=== PATIENT | female | born 1955 | race Caucasian/White ===

== ENCOUNTER 2018-04-15 19:49 | Emergency (ER) | payer MEDICARE ==
[~2018-04-15] VITALS: Ht 167.6 cm; Wt 87.2 kg
[2018-04-15 20:51] LABS: BASOPHILS # (AUTO) 0.08 x10^3/uL (0-0.1); BASOPHILS % (AUTO) 1 % (0-1); EOSINOPHILS # (AUTO) 0.14 x10^3/uL (0-0.4); EOSINOPHILS % (AUTO) 2 % (1-7); LYMPHOCYTES # (AUTO) 2.49 x10^3/uL (1-3.4); LYMPHOCYTES % (AUTO) 31 % (22-44); MD NO; MEAN CORPUSCULAR HEMOGLOBIN 31.5 pg (27.0-34.8); MEAN CORPUSCULAR HGB CONC 33.1 g/dL (32.4-35.8); MEAN PLATELET VOLUME 8.7 fL (7.4-10.4); MONOCYTES # (AUTO) 0.63 x10^3/uL (0.2-0.8); MONOCYTES % (AUTO) 8 % (2-9); NEUTROPHILS # (AUTO) 4.81 x10^3/uL (1.8-6.8); NEUTROPHILS % (AUTO) 59 % (42-75); PLATELET COUNT 303 x10^3/uL (130-400); RED BLOOD COUNT 4.81 x10^6/uL (3.82-5.3); RED CELL DISTRIBUTION WIDTH 13.9 % (9.6-15.2)
[2018-04-15 20:59] LABS: ALANINE AMINOTRANSFERASE 19 U/L (12-78); ALBUMIN 3.4 g/dL (3.4-5.0); ANION GAP 6 mmol/L (5-15); CALCIUM 9.3 mg/dL (8.5-10.1); CHLORIDE 111 mmol/L (98-107); CREATININE 1.09 mg/dL (0.55-1.02); SALICYLATE LEVEL 2.9 mg/dL (2.8-20.0)
[2018-04-15 21:01] LABS: ALKALINE PHOSPHATASE 78 U/L (45-117); BILIRUBIN,TOTAL 0.2 mg/dL (0.2-1.0); TOTAL PROTEIN 6.7 g/dL (6.4-8.2)
[2018-04-15 21:02] LABS: ACETAMINOPHEN < 2 mcg/mL (10-30)
[2018-04-15 21:25] LABS: MICROSCOPIC INDICATED
[2018-04-15 21:26] LABS: CULTURE INDICATED? NO
[2018-04-15 21:30] LABS: AMPHETAMINE SCREEN, URINE Negative (Negative); BARBITURATE SCREEN, URINE Negative (Negative); BENZODIAZEPINE SCREEN, URINE Negative (Negative); CANNABINOID SCREEN, URINE Negative (Negative); COCAINE SCREEN, URINE Negative (Negative); METHADONE SCREEN, URINE Negative (Negative); OPIATE SCREEN, URINE Negative (Negative)
[2018-04-15 23:23] VITALS: BP 98/62
[2018-04-15] MEDS ORDERED: DULO30CA2 PO (23:26)
[2018-04-15] MEDS ORDERED: TIOT18CA INH (23:27)
[2018-04-15] MEDS ORDERED: CELE200C PO (23:27)
[2018-04-15] MEDS ORDERED: ALBU18HF INH (23:29)
[2018-04-15] MEDS ORDERED: ATOR20TA9 PO (23:30)
[2018-04-15] MEDS ORDERED: TRAZ100T15 PO (23:30)
[2018-04-15] MEDS ORDERED: MELO15TA6 PO (23:31)
== END 2018-04-16 02:48 | disposition home or self-care (01) ==
LOC: ED 22:53
DX: R45.851 Suicidal ideations (principal); J44.9 Chronic obstructive pulmonary disease, unspecified; Z79.899 Other long term (current) drug therapy
CPT/HCPCS: 36415; 80053; 80307; 80329; 81001; 85025; 99284; G0480

== ENCOUNTER 2018-05-19 10:42 | Emergency (ER) | payer MEDICARE ==
[~2018-05-19] VITALS: Ht 167.6 cm; Wt 87.0 kg
[~2018-05-19 10:42] MED LIST: ALBU18HF INH; ATOR20TA9 PO; CELE200C PO; DULO30CA2 PO; MELO15TA6 PO; TIOT18CA INH; TRAZ100T15 PO
[2018-05-19 11:44] LABS: BASOPHILS # (AUTO) 0.12 x10^3/uL (0-0.1); BASOPHILS % (AUTO) 1 % (0-1); EOSINOPHILS # (AUTO) 0.07 x10^3/uL (0-0.4); EOSINOPHILS % (AUTO) 1 % (1-7); LYMPHOCYTES # (AUTO) 1.95 x10^3/uL (1-3.4); LYMPHOCYTES % (AUTO) 24 % (22-44); MD NO; MEAN CORPUSCULAR HEMOGLOBIN 32.5 pg (27.0-34.8); MEAN CORPUSCULAR HGB CONC 34.2 g/dL (32.4-35.8); MEAN CORPUSCULAR VOLUME 95.1 fL (80-100); MONOCYTES # (AUTO) 0.55 x10^3/uL (0.2-0.8); MONOCYTES % (AUTO) 7 % (2-9); NEUTROPHILS # (AUTO) 5.61 x10^3/uL (1.8-6.8); NEUTROPHILS % (AUTO) 68 % (42-75); PLATELET COUNT 258 x10^3/uL (130-400); RED CELL DISTRIBUTION WIDTH 13.4 % (9.6-15.2)
[2018-05-19 11:54] LABS: ALANINE AMINOTRANSFERASE 21 U/L (12-78); ALBUMIN 3.5 g/dL (3.4-5.0); ANION GAP 11 mmol/L (5-15); CALCIUM 8.8 mg/dL (8.5-10.1); CHLORIDE 108 mmol/L (98-107); CREATININE 0.82 mg/dL (0.55-1.02)
[2018-05-19 11:58] LABS: ALKALINE PHOSPHATASE 73 U/L (45-117); BILIRUBIN,TOTAL 0.5 mg/dL (0.2-1.0); TOTAL PROTEIN 6.6 g/dL (6.4-8.2); TROPONIN I < 0.015 ng/mL (0.000-0.045)
[2018-05-19 12:07] LABS: INTERNATIONAL NORMALIZED RATIO 0.97 (0.93-1.1); PROTHROMBIN TIME 10.1 Seconds (9.6-11.5)
[2018-05-19 14:11] LABS: TROPONIN I < 0.015 ng/mL (0.000-0.045)
[2018-05-19 14:48] VITALS: BP 115/80
== END 2018-05-19 14:50 | disposition home or self-care (01) ==
LOC: ED 13:43
DX: R07.89 Other chest pain (principal); J44.9 Chronic obstructive pulmonary disease, unspecified; F17.200 Nicotine dependence, unspecified, uncomplicated
CPT/HCPCS: 36415; 71045; 80053; 84484; 85025; 85610; 85730; 93005; 99285

== ENCOUNTER 2018-05-27 12:33 | Inpatient (IN) | payer MEDICARE ==
[~2018-05-27] VITALS: Ht 165.1 cm; Wt 90.1 kg
[~2018-05-27 12:33] MED LIST changes: +TRAZ-137 PO; -TRAZ100T15 PO
[2018-05-27] MEDS ORDERED: ALBUTEROL SULFATE 2.5 MG/3 ML ONE (12:51)
[2018-05-27] MEDS ORDERED: MAGNESIUM SULFATE/D5W 100 ML IVPB ONE (13:00)
[2018-05-27] MEDS ORDERED: SODIUM CHLORIDE FLUSH 10ML SYR IVF ONE (13:00)
[2018-05-27] MEDS ORDERED: methylPREDNISolone SOD SUCC 125 MG/2 ML IVP ONE (13:00)
[2018-05-27] MEDS ORDERED: PLEASE ENTER HEIGHT AND WEIGHT MC SCH (13:00)
[2018-05-27] MEDS ORDERED: ALBUTEROL 0.5%, 20ML NPPB SCH (13:00)
[2018-05-27] MEDS ORDERED: MAGNESIUM SULFATE PMX 1GM/100ML IV ONE (13:00)
[2018-05-27 13:06] LABS: ALANINE AMINOTRANSFERASE 23 U/L (12-78); ALBUMIN 3.8 g/dL (3.4-5.0); ANION GAP 12 mmol/L (5-15); CALCIUM 9.2 mg/dL (8.5-10.1); CHLORIDE 108 mmol/L (98-107); CREATININE 0.97 mg/dL (0.55-1.02)
[2018-05-27 13:07] LABS: BASOPHILS # (AUTO) 0.14 x10^3/uL (0-0.1); BASOPHILS % (AUTO) 2 % (0-1); EOSINOPHILS % (AUTO) 1 % (1-7); LYMPHOCYTES # (AUTO) 2.32 x10^3/uL (1-3.4); LYMPHOCYTES % (AUTO) 27 % (22-44); MD NO; MEAN CORPUSCULAR HEMOGLOBIN 32.3 pg (27.0-34.8); MEAN CORPUSCULAR HGB CONC 34.3 g/dL (32.4-35.8); MEAN CORPUSCULAR VOLUME 94.2 fL (80-100); MEAN PLATELET VOLUME 8.8 fL (7.4-10.4); MONOCYTES # (AUTO) 0.52 x10^3/uL (0.2-0.8); MONOCYTES % (AUTO) 6 % (2-9); NEUTROPHILS # (AUTO) 5.47 x10^3/uL (1.8-6.8); NEUTROPHILS % (AUTO) 64 % (42-75); PLATELET COUNT 344 x10^3/uL (130-400); RED BLOOD COUNT 5.17 x10^6/uL (3.82-5.3); RED CELL DISTRIBUTION WIDTH 13.5 % (9.6-15.2)
[2018-05-27 13:10] LABS: ALKALINE PHOSPHATASE 82 U/L (45-117); BILIRUBIN,TOTAL 0.5 mg/dL (0.2-1.0); TOTAL PROTEIN 7.2 g/dL (6.4-8.2); TROPONIN I < 0.015 ng/mL (0.000-0.045)
[2018-05-27] MEDS ORDERED: methylPREDNISolone SOD SUCC 125 MG/2 ML ONE (13:30)
[2018-05-27] MEDS ORDERED: SODIUM CHLORIDE FLUSH 10ML SYR IVF PRN (15:00)
[2018-05-27] MEDS ORDERED: BISACODYL 10 MG SUPP PR PRN (16:00)
[2018-05-27] MEDS ORDERED: ENALAPRILAT 1.25 MG/ML, 2ML IVPush PRN (16:00)
[2018-05-27] MEDS ORDERED: ONDANSETRON ODT 4 MG PO PRN (16:00)
[2018-05-27] MEDS ORDERED: DOCUSATE 100 MG CAPSULE PO PRN (16:00)
[2018-05-27] MEDS ORDERED: ONDANSETRON 2MG/ML, 2ML IVPush PRN (16:00)
[2018-05-27] MEDS: SODIUM CHLORIDE 0.9% 1,000 ML IV SCH (16:48)
[2018-05-27] MEDS ORDERED: ALBUTEROL SULFATE 2.5 MG/3 ML NPPB PRN ×2 (17:00→17:30)
[2018-05-27] MEDS: NICOTINE 14MG/24 HR PATCH.TD24 TD SCH (18:30)
[2018-05-27] MEDS: ENOXAPARIN 40 MG/0.4 ML SQ SCH (18:30)
[2018-05-27 19:18] VITALS: BP 98/62
[2018-05-27] MEDS: ALBUTEROL SULFATE 2.5 MG/3 ML NPPB SCH (19:41)
[2018-05-27] MEDS: methylPREDNISolone SOD SUCC 125 MG/2 ML IVPush SCH (19:45)
[2018-05-27] MEDS: TRAZODONE 100MG TABLET PO SCH (21:08)
[2018-05-27] MEDS: ATORVASTATIN 20 MG TABLET PO SCH (21:08)
[2018-05-28] MEDS: methylPREDNISolone SOD SUCC 125 MG/2 ML IVPush SCH ×4 (01:13→20:30)
[2018-05-28 01:20] VITALS: BP 110/64
[2018-05-28 02:06] VITALS: BP 98/62
[2018-05-28] MEDS: SODIUM CHLORIDE 0.9% 1,000 ML IV SCH ×2 (04:49→20:33)
[2018-05-28] MEDS: ALBUTEROL SULFATE 2.5 MG/3 ML NPPB SCH (05:22)
[2018-05-28] MEDS ORDERED: GUAIFENESIN 100 MG/5 ML, 10ML UDC ONE (05:35)
[2018-05-28 05:43] LABS: BASOPHILS % (AUTO) 0 % (0-1); EOSINOPHILS % (AUTO) 0 % (1-7); LYMPHOCYTES # (AUTO) 0.82 x10^3/uL (1-3.4); LYMPHOCYTES % (AUTO) 11 % (22-44); MD NO; MEAN CORPUSCULAR HEMOGLOBIN 31.3 pg (27.0-34.8); MEAN PLATELET VOLUME 9.1 fL (7.4-10.4); MONOCYTES # (AUTO) 0.07 x10^3/uL (0.2-0.8); MONOCYTES % (AUTO) 1 % (2-9); NEUTROPHILS # (AUTO) 6.64 x10^3/uL (1.8-6.8); NEUTROPHILS % (AUTO) 88 % (42-75); PLATELET COUNT 333 x10^3/uL (130-400); RED BLOOD COUNT 4.72 x10^6/uL (3.82-5.3); RED CELL DISTRIBUTION WIDTH 13.8 % (9.6-15.2)
[2018-05-28] MEDS: GUAIFENESIN/COD200MG-20MG/10ML LIQUID PO PRN (05:49)
[2018-05-28 05:53] LABS: CHLORIDE 110 mmol/L (98-107)
[2018-05-28 06:08] LABS: ANION GAP 7 mmol/L (5-15); CALCIUM 9.1 mg/dL (8.5-10.1); CREATININE 0.71 mg/dL (0.55-1.02); THYROID STIMULATING HORMONE 0.735 mIU/L (0.358-3.740)
[2018-05-28 07:53] VITALS: BP 103/64
[2018-05-28] MEDS: SENNA/DOCUSATE TABLET PO SCH (08:06)
[2018-05-28] MEDS: DULOXETINE 30 MG CAPSULE.DR PO SCH (08:06)
[2018-05-28] MEDS ORDERED: (Albuterol Sulfate (Ventolin Hfa) 2 PUFF) INH SCH (09:00)
[2018-05-28] MEDS: (Tiotropium Bromide** (Spiriva**) 18 MCG) INH SCH (09:00)
[2018-05-28] MEDS ORDERED: ALBUTEROL SULFATE 2.5 MG/3 ML NPPB PRN (11:00)
[2018-05-28 14:12] VITALS: BP 90/54
[2018-05-28] MEDS: ALBUTEROL/IPRATROPIUM 2.5MG/0.5MG, 3 ML HHN SCH ×2 (15:42→20:36)
[2018-05-28 16:19] LABS: CLOSTRIDIUM DIFFICILE ANTIGEN NEGATIVE; CLOSTRIDIUM DIFFICILE TOXIN NEGATIVE (Negative)
[2018-05-28] MEDS: NICOTINE 14MG/24 HR PATCH.TD24 TD SCH (17:35)
[2018-05-28] MEDS: ENOXAPARIN 40 MG/0.4 ML SQ SCH (17:36)
[2018-05-28 20:04] VITALS: BP 112/65
[2018-05-28] MEDS: TRAZODONE 100MG TABLET PO SCH (20:30)
[2018-05-28] MEDS: ATORVASTATIN 20 MG TABLET PO SCH (20:30)
[2018-05-29 00:09] VITALS: BP 111/68
[2018-05-29] MEDS: methylPREDNISolone SOD SUCC 125 MG/2 ML IVPush SCH ×4 (03:17→23:36)
[2018-05-29] MEDS: ALBUTEROL/IPRATROPIUM 2.5MG/0.5MG, 3 ML HHN SCH ×5 (03:30→20:36)
[2018-05-29 08:03] VITALS: BP 105/55
[2018-05-29] MEDS: SODIUM CHLORIDE 0.9% 1,000 ML IV SCH (08:55)
[2018-05-29] MEDS: SENNA/DOCUSATE TABLET PO SCH (08:56)
[2018-05-29] MEDS: DULOXETINE 30 MG CAPSULE.DR PO SCH (08:56)
[2018-05-29] MEDS: ACETAMINOPHEN 325 MG TABLET PO PRN (08:56)
[2018-05-29] MEDS: (Tiotropium Bromide** (Spiriva**) 18 MCG) INH SCH (08:56)
[2018-05-29 14:30] VITALS: BP 110/57
[2018-05-29] MEDS ORDERED: CEFTRIAXONE 1,000 MG IM SCH (14:30)
[2018-05-29] MEDS: AZITHROMYCIN 500 MG in SODIUM CHLORIDE 0.9% 250 ML IV SCH (15:15)
[2018-05-29] MEDS: BENZONATATE 100 MG CAPSULE PO SCH ×2 (16:56→20:58)
[2018-05-29] MEDS: NICOTINE 14MG/24 HR PATCH.TD24 TD SCH (16:56)
[2018-05-29] MEDS: CEFTRIAXONE 1,000 MG in SODIUM CHLORIDE 0.9% 50 ML IV SCH (16:56)
[2018-05-29] MEDS: ENOXAPARIN 40 MG/0.4 ML SQ SCH (16:57)
[2018-05-29 19:49] VITALS: BP 124/74
[2018-05-29] MEDS: TRAZODONE 100MG TABLET PO SCH (20:58)
[2018-05-29] MEDS: ATORVASTATIN 20 MG TABLET PO SCH (20:58)
[2018-05-30 00:11] VITALS: BP 120/68
[2018-05-30] MEDS: methylPREDNISolone SOD SUCC 125 MG/2 ML IVPush SCH ×4 (06:15→23:20)
[2018-05-30] MEDS: ALBUTEROL/IPRATROPIUM 2.5MG/0.5MG, 3 ML HHN SCH ×4 (06:44→20:30)
[2018-05-30 07:03] VITALS: BP 116/77
[2018-05-30] MEDS: BENZONATATE 100 MG CAPSULE PO SCH ×3 (08:28→20:58)
[2018-05-30] MEDS: SENNA/DOCUSATE TABLET PO SCH (08:29)
[2018-05-30] MEDS: DULOXETINE 30 MG CAPSULE.DR PO SCH (08:31)
[2018-05-30] MEDS: (Tiotropium Bromide** (Spiriva**) 18 MCG) INH SCH (08:31)
[2018-05-30 14:59] VITALS: BP 92/54
[2018-05-30] MEDS: AZITHROMYCIN 500 MG in SODIUM CHLORIDE 0.9% 250 ML IV SCH (15:32)
[2018-05-30] MEDS: NICOTINE 14MG/24 HR PATCH.TD24 TD SCH (16:45)
[2018-05-30] MEDS: ENOXAPARIN 40 MG/0.4 ML SQ SCH (16:45)
[2018-05-30] MEDS: CEFTRIAXONE 1,000 MG in SODIUM CHLORIDE 0.9% 50 ML IV SCH (17:13)
[2018-05-30 19:33] VITALS: BP 136/79
[2018-05-30] MEDS: ATORVASTATIN 20 MG TABLET PO SCH (20:58)
[2018-05-30] MEDS: TRAZODONE 100MG TABLET PO SCH (20:58)
[2018-05-31 01:25] VITALS: BP 135/74
[2018-05-31] MEDS: methylPREDNISolone SOD SUCC 125 MG/2 ML IVPush SCH ×4 (05:29→22:46)
[2018-05-31 06:55] VITALS: BP 145/72
[2018-05-31] MEDS: ALBUTEROL/IPRATROPIUM 2.5MG/0.5MG, 3 ML HHN SCH ×4 (07:00→19:51)
[2018-05-31] MEDS: BENZONATATE 100 MG CAPSULE PO SCH ×3 (08:46→20:56)
[2018-05-31] MEDS: SENNA/DOCUSATE TABLET PO SCH (08:46)
[2018-05-31] MEDS: DULOXETINE 30 MG CAPSULE.DR PO SCH (08:46)
[2018-05-31] MEDS: (Tiotropium Bromide** (Spiriva**) 18 MCG) INH SCH (09:00)
[2018-05-31] MEDS: ACETAMINOPHEN 325 MG TABLET PO PRN (11:39)
[2018-05-31] MEDS: GUAIFENESIN/COD200MG-20MG/10ML LIQUID PO PRN (12:20)
[2018-05-31] MEDS: NICOTINE 14MG/24 HR PATCH.TD24 TD SCH (15:43)
[2018-05-31] MEDS: ENOXAPARIN 40 MG/0.4 ML SQ SCH (15:43)
[2018-05-31 15:47] VITALS: BP 124/70
[2018-05-31 18:49] VITALS: BP 118/70
[2018-05-31] MEDS: DOXYCYCLINE 100MG TABLET PO SCH (20:56)
[2018-05-31] MEDS: TRAZODONE 100MG TABLET PO SCH (20:56)
[2018-05-31] MEDS: ATORVASTATIN 20 MG TABLET PO SCH (20:56)
[2018-06-01 01:15] VITALS: BP 149/87
[2018-06-01] MEDS: methylPREDNISolone SOD SUCC 125 MG/2 ML IVPush SCH ×2 (05:54→11:00)
[2018-06-01] MEDS: ALBUTEROL/IPRATROPIUM 2.5MG/0.5MG, 3 ML HHN SCH ×2 (07:45→10:35)
[2018-06-01 07:53] VITALS: BP 151/80
[2018-06-01] MEDS: (Tiotropium Bromide** (Spiriva**) 18 MCG) INH SCH (08:06)
[2018-06-01] MEDS: DOXYCYCLINE 100MG TABLET PO SCH (08:11)
[2018-06-01] MEDS: SENNA/DOCUSATE TABLET PO SCH (08:11)
[2018-06-01] MEDS: BENZONATATE 100 MG CAPSULE PO SCH (08:11)
[2018-06-01] MEDS: DULOXETINE 30 MG CAPSULE.DR PO SCH (08:11)
[2018-06-01] MEDS ORDERED: ALBU18HF INH (08:52)
[2018-06-01] MEDS ORDERED: BENZ-17 PO (08:52)
[2018-06-01] MEDS ORDERED: METH4TAB2 PO (08:52)
[2018-06-01] MEDS ORDERED: TIOT18CA INH (08:52)
[2018-06-01] MEDS ORDERED: SENN1TAB7 PO (08:52)
[2018-06-01] MEDS ORDERED: FLUT1AER PO (08:52)
[2018-06-01] MEDS ORDERED: ALBU2.5V NPPB (08:52)
[2018-06-01] MEDS ORDERED: DOXY100T PO (08:52)
[2018-06-01] MEDS ORDERED: FLUTICASONE/VILANTEROL 100-25MCG/INH INH SCH (09:00)
== END 2018-06-01 13:12 | disposition home or self-care (01) | DRG 189 ==
LOC: ED 13:32 → EDIP 14:56 → 3NE 16:05 → DCLOUNGE 06-01 13:12
PROVIDERS: ADMIT Internal Medicine; ATTEND Internal Medicine
DX: J96.01 Acute respiratory failure with hypoxia (principal); J44.1 Chronic obstructive pulmonary disease with (acute) exacerbation; E87.2 Acidosis; R73.9 Hyperglycemia, unspecified; E78.5 Hyperlipidemia, unspecified; M19.90 Unspecified osteoarthritis, unspecified site; F41.9 Anxiety disorder, unspecified; F32.9 Major depressive disorder, single episode, unspecified; Z96.651 Presence of right artificial knee joint; F17.200 Nicotine dependence, unspecified, uncomplicated; Z81.8 Family history of other mental and behavioral disorders; Z82.49 Family history of ischemic heart disease and other diseases of the circulatory system
CPT/HCPCS: 36415; 71045; 80048; 80053; 83605; 83735; 84100; 84443; 84484; 85025; 87070; 87205; 87324; 93005; 94640; 99285; J0456; J0696; J1650; J7613; J7620; J2930; J7030; J7050

== ENCOUNTER 2018-07-03 14:33 | Emergency (ER) | payer MEDICARE ==
[~2018-07-03] VITALS: Ht 167.6 cm; Wt 80.1 kg
[~2018-07-03 14:33] MED LIST changes: +ALBU2.5V NPPB; +BENZ-17 PO; +DOXY100T PO; +FLUT1AER PO; +METH4TAB2 PO; +SENN1TAB8 PO
[2018-07-03 15:46] LABS: BASOPHILS # (AUTO) 0.11 x10^3/uL (0-0.1); BASOPHILS % (AUTO) 1 % (0-1); EOSINOPHILS # (AUTO) 0.07 x10^3/uL (0-0.4); EOSINOPHILS % (AUTO) 1 % (1-7); LYMPHOCYTES # (AUTO) 2.64 x10^3/uL (1-3.4); LYMPHOCYTES % (AUTO) 30 % (22-44); MD NO; MEAN CORPUSCULAR HEMOGLOBIN 31.9 pg (27.0-34.8); MEAN CORPUSCULAR HGB CONC 33.6 g/dL (32.4-35.8); MEAN CORPUSCULAR VOLUME 94.9 fL (80-100); MEAN PLATELET VOLUME 8.7 fL (7.4-10.4); MONOCYTES # (AUTO) 0.57 x10^3/uL (0.2-0.8); MONOCYTES % (AUTO) 6 % (2-9); NEUTROPHILS # (AUTO) 5.46 x10^3/uL (1.8-6.8); NEUTROPHILS % (AUTO) 62 % (42-75); PLATELET COUNT 278 x10^3/uL (130-400); RED BLOOD COUNT 4.91 x10^6/uL (3.82-5.3); RED CELL DISTRIBUTION WIDTH 13.8 % (9.6-15.2)
[2018-07-03 15:57] LABS: ALANINE AMINOTRANSFERASE 21 U/L (12-78); ALBUMIN 3.3 g/dL (3.4-5.0); ANION GAP 7 mmol/L (5-15); CALCIUM 8.7 mg/dL (8.5-10.1); CHLORIDE 110 mmol/L (98-107); CREATININE 0.92 mg/dL (0.55-1.02)
[2018-07-03 16:02] LABS: ALKALINE PHOSPHATASE 85 U/L (45-117); BILIRUBIN,TOTAL 0.3 mg/dL (0.2-1.0); TOTAL PROTEIN 6.3 g/dL (6.4-8.2); TROPONIN I < 0.015 ng/mL (0.000-0.045)
[2018-07-03 17:14] VITALS: BP 120/68
== END 2018-07-03 17:17 | disposition home or self-care (01) ==
LOC: ED 14:38
DX: J44.1 Chronic obstructive pulmonary disease with (acute) exacerbation (principal); F41.1 Generalized anxiety disorder; M19.90 Unspecified osteoarthritis, unspecified site; F17.200 Nicotine dependence, unspecified, uncomplicated
CPT/HCPCS: 36415; 71045; 80053; 83880; 84484; 85025; 93005; 99285; J7512

== ENCOUNTER 2018-07-30 06:44 | Emergency (ER) | payer MEDICARE ==
[~2018-07-30] VITALS: Ht 167.6 cm; Wt 87.5 kg
[2018-07-30] MEDS ORDERED: ASPIRIN 81 MG TABLET CHEW PO ONE (07:30)
[2018-07-30] MEDS ORDERED: ALBUTEROL/IPRATROPIUM 2.5MG/0.5MG, 3 ML NPPB ONE (07:30)
[2018-07-30] MEDS ORDERED: ALBUTEROL/IPRATROPIUM 2.5MG/0.5MG, 3 ML ONE (07:31)
[2018-07-30] MEDS ORDERED: ACETAMINOPHEN 325 MG TABLET ONE (07:37)
[2018-07-30 07:56] LABS: ALANINE AMINOTRANSFERASE 18 U/L (12-78); ALBUMIN 3.2 g/dL (3.4-5.0); ANION GAP 10 mmol/L (5-15); CHLORIDE 111 mmol/L (98-107); CREATININE 0.86 mg/dL (0.55-1.02)
[2018-07-30 08:00] LABS: ALKALINE PHOSPHATASE 78 U/L (45-117); BILIRUBIN,TOTAL 0.3 mg/dL (0.2-1.0); TOTAL PROTEIN 6.3 g/dL (6.4-8.2); TROPONIN I < 0.015 ng/mL (0.000-0.045)
[2018-07-30] MEDS ORDERED: ACETAMINOPHEN 325 MG TABLET PO ONE (08:00)
[2018-07-30 08:16] LABS: BASOPHILS # (AUTO) 0.12 x10^3/uL (0-0.1); BASOPHILS % (AUTO) 1 % (0-1); EOSINOPHILS # (AUTO) 0.26 x10^3/uL (0-0.4); EOSINOPHILS % (AUTO) 2 % (1-7); LYMPHOCYTES # (AUTO) 3.02 x10^3/uL (1-3.4); LYMPHOCYTES % (AUTO) 28 % (22-44); MD NO; MEAN CORPUSCULAR HEMOGLOBIN 32.6 pg (27.0-34.8); MEAN CORPUSCULAR HGB CONC 33.9 g/dL (32.4-35.8); MEAN CORPUSCULAR VOLUME 96.3 fL (80-100); MEAN PLATELET VOLUME 9.1 fL (7.4-10.4); MONOCYTES # (AUTO) 0.58 x10^3/uL (0.2-0.8); MONOCYTES % (AUTO) 5 % (2-9); NEUTROPHILS % (AUTO) 64 % (42-75); PLATELET COUNT 286 x10^3/uL (130-400); RED BLOOD COUNT 4.53 x10^6/uL (3.82-5.3); RED CELL DISTRIBUTION WIDTH 13.6 % (9.6-15.2)
[2018-07-30 09:16] VITALS: BP 123/59
== END 2018-07-30 09:18 | disposition home or self-care (01) ==
LOC: ED 07:27
DX: J44.1 Chronic obstructive pulmonary disease with (acute) exacerbation (principal); J06.9 Acute upper respiratory infection, unspecified; J44.9 Chronic obstructive pulmonary disease, unspecified; M19.90 Unspecified osteoarthritis, unspecified site; F32.9 Major depressive disorder, single episode, unspecified; E78.5 Hyperlipidemia, unspecified; F17.200 Nicotine dependence, unspecified, uncomplicated
CPT/HCPCS: 36415; 71045; 80053; 84484; 85025; 93005; 94640; 99285; J7512; J7620

== ENCOUNTER → 2018-08-11 | Outpatient (CLI) | payer MEDICARE | END | disposition home or self-care (01) | LOC: CFH 08:36 | PROVIDERS: ATTEND Physician Assistant | DX: Z12.2 Encounter for screening for malignant neoplasm of respiratory organs (principal); J44.9 Chronic obstructive pulmonary disease, unspecified; F17.210 Nicotine dependence, cigarettes, uncomplicated | CPT/HCPCS: G0297 ==

== ENCOUNTER 2018-09-17 11:30 | Emergency (ER) | payer MEDICARE ==
[~2018-09-17] VITALS: Ht 167.6 cm; Wt 89.6 kg
[2018-09-17 11:53] VITALS: BP 117/66
[2018-09-17] MEDS ORDERED: KETOROLAC 30 MG/1 ML ONE (12:29)
[2018-09-17] MEDS ORDERED: KETOROLAC 30 MG/1 ML IM ONE (12:30)
== END 2018-09-17 13:29 | disposition home or self-care (01) ==
LOC: ED 13:15
DX: M25.561 Pain in right knee (principal); M25.562 Pain in left knee; M54.5 Low back pain; G89.29 Other chronic pain; M25.552 Pain in left hip; E78.5 Hyperlipidemia, unspecified; F32.9 Major depressive disorder, single episode, unspecified; F41.1 Generalized anxiety disorder; J44.9 Chronic obstructive pulmonary disease, unspecified; M19.90 Unspecified osteoarthritis, unspecified site; Z90.89 Acquired absence of other organs
CPT/HCPCS: 96372; 99283; J1885

== ENCOUNTER 2018-10-03 12:08 | Emergency (ER) | payer MEDICARE ==
[~2018-10-03] VITALS: Ht 167.6 cm; Wt 86.8 kg
[~2018-10-03 12:08] MED LIST changes: +ATOR20TA37 PO; -ATOR20TA9 PO
[2018-10-03] MEDS ORDERED: ALBUTEROL/IPRATROPIUM 2.5MG/0.5MG, 3 ML ONE (13:24)
[2018-10-03 13:29] LABS: BASOPHILS # (AUTO) 0.08 x10^3/uL (0-0.1); BASOPHILS % (AUTO) 1 % (0-1); EOSINOPHILS # (AUTO) 0.11 x10^3/uL (0-0.4); EOSINOPHILS % (AUTO) 1 % (1-7); LYMPHOCYTES # (AUTO) 3.72 x10^3/uL (1-3.4); LYMPHOCYTES % (AUTO) 37 % (22-44); MD NO; MEAN CORPUSCULAR HEMOGLOBIN 32.2 pg (27.0-34.8); MEAN CORPUSCULAR HGB CONC 33.2 g/dL (32.4-35.8); MEAN CORPUSCULAR VOLUME 97.1 fL (80-100); MEAN PLATELET VOLUME 8.8 fL (7.4-10.4); MONOCYTES # (AUTO) 0.44 x10^3/uL (0.2-0.8); MONOCYTES % (AUTO) 4 % (2-9); NEUTROPHILS # (AUTO) 5.62 x10^3/uL (1.8-6.8); NEUTROPHILS % (AUTO) 56 % (42-75); PLATELET COUNT 305 x10^3/uL (130-400); RED BLOOD COUNT 4.84 x10^6/uL (3.82-5.3); RED CELL DISTRIBUTION WIDTH 13.5 % (9.6-15.2)
[2018-10-03] MEDS ORDERED: ALBUTEROL/IPRATROPIUM 2.5MG/0.5MG, 3 ML NEB ONE (13:30)
[2018-10-03 13:40] LABS: ALBUMIN 3.4 g/dL (3.4-5.0); ANION GAP 8 mmol/L (5-15); CALCIUM 8.9 mg/dL (8.5-10.1); CHLORIDE 108 mmol/L (98-107); CREATININE 0.88 mg/dL (0.55-1.02)
[2018-10-03 13:43] LABS: TROPONIN I < 0.015 ng/mL (0.000-0.045)
[2018-10-03 14:51] VITALS: BP 117/57
== END 2018-10-03 15:37 | disposition home or self-care (01) ==
LOC: ED 13:28
DX: J44.1 Chronic obstructive pulmonary disease with (acute) exacerbation (principal); M19.90 Unspecified osteoarthritis, unspecified site; E78.5 Hyperlipidemia, unspecified; F41.1 Generalized anxiety disorder; F32.9 Major depressive disorder, single episode, unspecified; F17.200 Nicotine dependence, unspecified, uncomplicated
CPT/HCPCS: 36415; 71045; 80048; 82040; 84484; 85025; 93005; 94640; 99284; J7512

== ENCOUNTER 2018-12-19 09:04 | Emergency (ER) | payer MEDICARE ==
[~2018-12-19] VITALS: Ht 167.6 cm; Wt 89.0 kg
[~2018-12-19 09:04] MED LIST changes: +SENN-177 PO; -SENN1TAB8 PO
--- NOTE | 2018-12-19 09:28 | NUR ---
Ambulatory w/ steady gait to rm 25 from [facility].
[2018-12-19] MEDS ORDERED: DIPHENHYDRAMINE 50 MG/ML, 1ML ONE (09:53)
[2018-12-19] MEDS ORDERED: KETOROLAC 30 MG/1 ML ONE (09:53)
[2018-12-19] MEDS ORDERED: KETOROLAC 30 MG/1 ML IM ONE (10:00)
[2018-12-19] MEDS ORDERED: NALBUPHINE 10 MG/ML, 1ML IM PRN (10:00)
[2018-12-19] MEDS ORDERED: DIPHENHYDRAMINE 50 MG/ML, 1ML IM ONE (10:00)
--- NOTE | 2018-12-19 10:04 | NUR ---
report form elayne feng. pt resting in room with lights dimmed. medicated per dec. no needs at this time. connected to monitor. vss. call light within reach. new orders received for head ct. awaiting imaging at this time.
--- NOTE | 2018-12-19 10:44 | NUR ---
all results back at this time. chart up for recheck.
[2018-12-19 11:07] VITALS: BP 112/48
--- NOTE | 2018-12-19 11:07 | NUR ---
pt resting in room with lights dimmed. vss. no needs at this time. awaiting dispo.
== END 2018-12-19 11:23 | disposition home or self-care (01) ==
LOC: ED 09:39
DX: R51 Headache (principal); E78.5 Hyperlipidemia, unspecified; J44.9 Chronic obstructive pulmonary disease, unspecified; F17.200 Nicotine dependence, unspecified, uncomplicated
CPT/HCPCS: 70450; 96372; 99284; J1200; J1885

== ENCOUNTER 2019-01-11 14:38 | Emergency (ER) | payer MEDICARE ==
[~2019-01-11] VITALS: Ht 167.6 cm; Wt 89.3 kg
[2019-01-11 15:15] LABS: BASOPHILS % (AUTO) 1 % (0-1); EOSINOPHILS # (AUTO) 0.12 x10^3/uL (0-0.4); EOSINOPHILS % (AUTO) 1 % (1-7); LYMPHOCYTES # (AUTO) 2.14 x10^3/uL (1-3.4); LYMPHOCYTES % (AUTO) 25 % (22-44); MD NO; MEAN CORPUSCULAR HEMOGLOBIN 32.5 pg (27.0-34.8); MEAN CORPUSCULAR HGB CONC 34.1 g/dL (32.4-35.8); MEAN CORPUSCULAR VOLUME 95.5 fL (80-100); MEAN PLATELET VOLUME 8.7 fL (7.4-10.4); MONOCYTES # (AUTO) 0.57 x10^3/uL (0.2-0.8); MONOCYTES % (AUTO) 7 % (2-9); NEUTROPHILS % (AUTO) 65 % (42-75); PLATELET COUNT 282 x10^3/uL (130-400); RED BLOOD COUNT 4.66 x10^6/uL (3.82-5.3); RED CELL DISTRIBUTION WIDTH 13.1 % (9.6-15.2)
[2019-01-11 15:23] LABS: ALBUMIN 3.6 g/dL (3.4-5.0); ANION GAP 3 mmol/L (5-15); CALCIUM 8.7 mg/dL (8.5-10.1); CHLORIDE 111 mmol/L (98-107); CREATININE 1.17 mg/dL (0.55-1.02); SALICYLATE LEVEL 1.8 mg/dL (2.8-20.0)
--- NOTE | 2019-01-11 15:23 | NUR ---
PT PRESENTS TO ED C/O SI, DENIES HI. PT STATES SHE HAS THOUGHTS OF CRASHING HER CAR A MEANS TO KIL HERSELF. PT HAS ACCESS TO CAR. PT DENIES PREVIOUS ATTEMTPS. PT TO ROOM, AMBULATORY WITH STEADY GAIT. ALL PT BELONGINGS REMOVED. ROOM SECURED. 2 BAGS OF PT BELONGINGS TO ED SECURED STORAGE. URINE SAMPLE OBTAINED AND SENT TO LAB. SITTER REQUESTED TO BEDSIDE. PT STATES SHE WANTS HELP WITH HER SI. PT AGREES TO VERBAL CONTRACT WITH THIS RN TO NOT ATTEMPT TO HURT HERSELF WHILE IN ED.
[2019-01-11 15:24] LABS: ACETAMINOPHEN < 2 mcg/mL (10-30)
[2019-01-11 15:45] LABS: AMPHETAMINE SCREEN, URINE Negative (Negative); BARBITURATE SCREEN, URINE Negative (Negative); BENZODIAZEPINE SCREEN, URINE Negative (Negative); CANNABINOID SCREEN, URINE Negative (Negative); COCAINE SCREEN, URINE Negative (Negative); METHADONE SCREEN, URINE Negative (Negative); OPIATE SCREEN, URINE Negative (Negative)
--- NOTE | 2019-01-11 16:14 | NUR ---
PT HOME MEDICATIONS TAKEN TO PHARMACY AND RECEIPT PLACED ON PT CHART, PT INFORMED. PT RESTING ON GURNEY. PROVIDED WITH WATER. SITTER IN PLACE WITH EYES ON PT. ROOM SETUP FOR TELEPSYCH CONSULT.
--- NOTE | 2019-01-11 16:36 | NUR ---
REPORT TO SOC OVER PHONE
--- NOTE | 2019-01-11 17:31 | NUR ---
PT RESTING ON GURNEY. RESP EVEN AND UNLABORED. NADN. SITTER IN PLACE WITH EYES ON PT. AWAITING REPORT FROM SOC.
--- NOTE | 2019-01-11 18:59 | NUR ---
SBAR REPORT TO KEVIN VUONG
--- NOTE | 2019-01-11 19:00 | NUR ---
PT PROVIDED WITH ED DIET SECURITY TRAY. SITTER IN PLACE WITH EYES ON.
--- NOTE | 2019-01-11 19:01 | NUR ---
ASSUMED CARE OF PT FROM KEVIN SADLER. PT CURRENTLY RESTING ON [employer]. NAD NOTED. SKIN PWD. RESP EVEN AND EQAUL. PT EATING MEAL TRAY. GARAGE DOORS DOWN IN ROOM. BELONGINGS IN LOCKED LOCKER. SITTER AT DOORSIDE.
[2019-01-11 19:24] VITALS: BP 108/54
--- NOTE | 2019-01-11 19:51 | NUR ---
ADMITTING MD BARRIENTOS AT BEDSIDE. PT CALM AND COOPERATIVE. PT VERBALIZES UNDERSTANDING OF POC. GARAGE DOORS DOWN IN ROOM. BELONGINGS IN LOCKED LOCKER. SITTER OUTSIDE OF ROOM.
--- NOTE | 2019-01-11 20:36 | NUR ---
PT CURRENTLY RESTING ON [employer]. NAD NOTED. SKIN PWD. RESP EVEN AND EQAUL. PT PROVIDED WITH DRINKS. GARAGE DOORS DOWN IN ROOM. BELONGINGS IN LOCKED LOCKER. SITTER AT DOORSIDE.
--- NOTE | 2019-01-11 21:05 | NUR ---
PT CURRENTLY RESTING ON [employer]. NAD NOTED. SKIN PWD. RESP EVEN AND EQAUL. PT DENIES PAIN/NEEDS AT THIS TIME. GARAGE DOORS DOWN IN ROOM. BELONGINGS IN LOCKED LOCKER. SITTER AT DOORSIDE.
--- NOTE | 2019-01-11 21:12 | NUR ---
TJ RN: PACKET FAXED TO [facility], [facility], [facility], [facility], [facility], AND [facility]
--- NOTE | 2019-01-11 21:13 | NUR ---
TJ RN: PACKET ALSO FAXED TO [facility]
--- NOTE | 2019-01-11 21:22 | NUR ---
REPORT FROM CAROLANN RN. PT RESTING. VSS. PT IN VIEW OF SITTER.
--- NOTE | 2019-01-11 21:24 | NUR ---
REPORT TO KEVIN FRIED WHO ASSUMED CARE OF PT.
--- NOTE | 2019-01-11 23:23 | NUR ---
[facility] TO TAKE PT. THEY WILL CALL BACK WITH AN ACCEPTING MD. PT SLEEPING. SITTER IN VIEW OF PT.
--- NOTE | 2019-01-12 | NUR ---
TP RN: NIA FROM [facility] AND STATES THEY WILL BE TAKING THIS PATIENT. DR. LAZCANO IS THE ACCEPTING PHYSCIAN. THEY REQUEST THAT WE WAIT UNTIL [phone] TO SEND PT.
--- NOTE | 2019-01-12 00:03 | NUR ---
Met with patient, prior authorization done with insurance, psychiatrist will admit to [facility].
--- NOTE | 2019-01-12 00:12 | NUR ---
Notified ER of acceptance to [facility]. Informed that [facility] had accepted patient.
[2019-01-12] MEDS ORDERED: ALBUTEROL SULFATE 2.5 MG/3 ML NPPB PRN (00:30)
[2019-01-12] MEDS ORDERED: TRAZODONE 100MG TABLET PO SCH (00:30)
--- NOTE | 2019-01-12 00:34 | NUR ---
PT SLEEPING. EVEN RISE AND FOLL OF CHEST OBSERVED. SITTER IN VIEW OF PT.
--- NOTE | 2019-01-12 01:04 | NUR ---
TP RN: BURKE KRAMER AT [facility], PT INSURANCE IS OUT OF NETWORK FOR THEM, SO THEY WILL NOT BE ACCEPTING THIS PATIENT.
--- NOTE | 2019-01-12 01:07 | NUR ---
TP RN: SPOKE TO [employer] ON [facility], KATHY. SHE STATES [facility] WILL BE ACCEPTING THIS PATIENT. THE NURSE WILL CALL SHORTLY FOR REPORT
--- NOTE | 2019-01-12 01:30 | NUR ---
Patient/Caregiver given discharge instructions and they have confirmed that they understand the instructions. Patient ambulatory with steady gait.
[2019-01-12] MEDS ORDERED: DULOXETINE 30 MG CAPSULE.DR PO SCH (09:00)
[2019-01-12] MEDS ORDERED: ATORVASTATIN 20 MG TABLET PO SCH (21:00)
== END 2019-01-12 01:46 | disposition home or self-care (01) ==
LOC: ED 15:40 → EDIP 19:58 → UNDOADMIN 19:58
DX: F33.2 Major depressive disorder, recurrent severe without psychotic features (principal); Z79.899 Other long term (current) drug therapy; F41.1 Generalized anxiety disorder; J44.9 Chronic obstructive pulmonary disease, unspecified
CPT/HCPCS: 36415; 80048; 80307; 80329; 82040; 85025; 99284; 99285; G0480

== ENCOUNTER 2019-01-12 00:57 | Inpatient (IN) | payer MEDICARE ==
[~2019-01-12] VITALS: Ht 167.6 cm; Wt 87.3 kg
[2019-01-12] MEDS ORDERED: POLYETHYLENE GLYCOL 17 GM PACKET PO PRN (01:30)
[2019-01-12] MEDS ORDERED: DOCUSATE 100 MG CAPSULE PO PRN (01:30)
[2019-01-12] MEDS ORDERED: ACETAMINOPHEN 325 MG TABLET PO PRN (01:30)
[2019-01-12] MEDS ORDERED: BISACODYL 10 MG SUPP PR PRN (01:30)
[2019-01-12] MEDS ORDERED: ONDANSETRON ODT 4 MG PO PRN (01:30)
[2019-01-12 01:56] LABS: MICROSCOPIC NOT IND
[2019-01-12 02:00] LABS: CULTURE INDICATED? NO
[2019-01-12] MEDS ORDERED: ALBUTEROL SULFATE 2.5 MG/3 ML NPPB PRN (02:00)
[2019-01-12 02:01] LABS: CHOL/HDL RATIO 2.1; LDL/HDL RATIO 0.8 (0.5-3.0)
[2019-01-12] MEDS: ATORVASTATIN 20 MG TABLET PO SCH ×2 (02:10→21:08)
[2019-01-12 02:56] LABS: FREE T4 (FREE THYROXINE) 0.84 ng/dL (0.76-1.46)
[2019-01-12 03:38] VITALS: BP 116/76
[2019-01-12 08:00] VITALS: BP 105/69
[2019-01-12] MEDS ORDERED: DULOXETINE 30 MG CAPSULE.DR PO SCH (09:00)
[2019-01-12] MEDS ORDERED: ALBUTEROL/IPRATROPIUM 2.5MG/0.5MG, 3 ML NPPB PRN (11:30)
[2019-01-12] MEDS: NICOTINE 7 MG/24 HR PATCH.TD24 TD SCH (12:50)
[2019-01-12 20:00] VITALS: BP 110/72
[2019-01-12] MEDS: TRAZODONE 100MG TABLET PO SCH (21:08)
[2019-01-13 05:05] LABS: ALANINE AMINOTRANSFERASE 27 U/L (12-78); ANION GAP 5 mmol/L (5-15); CALCIUM 8.2 mg/dL (8.5-10.1); CHLORIDE 112 mmol/L (98-107)
[2019-01-13 05:16] LABS: ALKALINE PHOSPHATASE 84 U/L (45-117); BILIRUBIN,TOTAL 0.5 mg/dL (0.2-1.0); CREATININE 0.77 mg/dL (0.55-1.02); TOTAL PROTEIN 5.7 g/dL (6.4-8.2)
[2019-01-13 07:34] VITALS: BP 103/70
[2019-01-13] MEDS: DULOXETINE 30 MG CAPSULE.DR PO SCH (08:34)
[2019-01-13] MEDS: NICOTINE 7 MG/24 HR PATCH.TD24 TD SCH (12:27)
[2019-01-13 20:13] VITALS: BP 117/84
[2019-01-13] MEDS: ATORVASTATIN 20 MG TABLET PO SCH (21:34)
[2019-01-13] MEDS: TRAZODONE 100MG TABLET PO SCH (21:34)
[2019-01-14 07:37] VITALS: BP 103/76
[2019-01-14] MEDS: DULOXETINE 30 MG CAPSULE.DR PO SCH (08:11)
[2019-01-14] MEDS: NICOTINE 7 MG/24 HR PATCH.TD24 TD SCH (12:38)
[2019-01-14 19:52] VITALS: BP 105/68
[2019-01-14] MEDS: TRAZODONE 100MG TABLET PO SCH (21:13)
[2019-01-14] MEDS: ATORVASTATIN 20 MG TABLET PO SCH (21:13)
[2019-01-15 07:15] VITALS: BP 91/59
[2019-01-15] MEDS: DULOXETINE 30 MG CAPSULE.DR PO SCH (09:18)
[2019-01-15] MEDS: NICOTINE 7 MG/24 HR PATCH.TD24 TD SCH (11:49)
[2019-01-15 19:53] VITALS: BP 102/65
[2019-01-15] MEDS: ATORVASTATIN 20 MG TABLET PO SCH (20:00)
[2019-01-15] MEDS: TRAZODONE 100MG TABLET PO SCH (20:00)
[2019-01-16 07:44] VITALS: BP 121/62
[2019-01-16] MEDS: DULOXETINE 30 MG CAPSULE.DR PO SCH (08:39)
[2019-01-16] MEDS: NICOTINE 7 MG/24 HR PATCH.TD24 TD SCH (12:13)
[2019-01-16 19:58] VITALS: BP 96/60
[2019-01-16] MEDS: ATORVASTATIN 20 MG TABLET PO SCH (20:16)
[2019-01-16] MEDS: TRAZODONE 100MG TABLET PO SCH (20:16)
[2019-01-17 07:14] VITALS: BP 104/70
[2019-01-17] MEDS: DULOXETINE 30 MG CAPSULE.DR PO SCH (08:41)
[2019-01-17] MEDS: NICOTINE 7 MG/24 HR PATCH.TD24 TD SCH (12:00)
[2019-01-17 19:59] VITALS: BP 107/71
[2019-01-17] MEDS: TRAZODONE 100MG TABLET PO SCH (20:25)
[2019-01-17] MEDS: ATORVASTATIN 20 MG TABLET PO SCH (20:25)
[2019-01-18 07:21] VITALS: BP 105/67
[2019-01-18] MEDS: DULOXETINE 30 MG CAPSULE.DR PO SCH (08:39)
[2019-01-18] MEDS ORDERED: DULO60CA7 PO (10:06)
== END 2019-01-18 10:45 | disposition home or self-care (01) | DRG 885 ==
LOC: 3E 01:41
PROVIDERS: ADMIT Psychiatry & Neurology Psychosomatic Medicine; ATTEND Psychiatry & Neurology Psychosomatic Medicine
DX: F33.2 Major depressive disorder, recurrent severe without psychotic features (principal); R45.851 Suicidal ideations; J44.9 Chronic obstructive pulmonary disease, unspecified; E78.5 Hyperlipidemia, unspecified; G89.29 Other chronic pain; M19.90 Unspecified osteoarthritis, unspecified site; Z23 Encounter for immunization; Z91.5 Personal history of self-harm; Z81.8 Family history of other mental and behavioral disorders; Z83.3 Family history of diabetes mellitus; Z80.42 Family history of malignant neoplasm of prostate
CPT/HCPCS: 36415; 71045; 80053; 80061; 81003; 82150; 82607; 83690; 83735; 84100; 84439; 84443; 86592; 90656; 93005; 99285

== ENCOUNTER 2019-12-28 12:51 | Emergency (ER) | payer SELFPAY ==
[~2019-12-28] VITALS: Ht 167.6 cm; Wt 90.4 kg
[~2019-12-28 12:51] MED LIST changes: +DULO60CA7 PO; -TRAZ-137 PO; +TRAZ-175 PO
[2019-12-28 12:56] VITALS: BP 123/64
--- NOTE | 2019-12-28 13:15 | NUR ---
PT HAS CO CHEST PRESSURE AND STRESS. PT HAS HAD NUMEROUS STRESSORS AND IS TEARFUL. PT STATES HER CP, SOB STARTED A FEW DAYS AGO. DENIES N/V/D.
[2019-12-28 13:55] LABS: BASOPHILS # (AUTO) 0.05 x10^3/uL (0-0.1); BASOPHILS % (AUTO) 1 % (0-1); EOSINOPHILS # (AUTO) 0.11 x10^3/uL (0-0.4); EOSINOPHILS % (AUTO) 2 % (1-7); LYMPHOCYTES # (AUTO) 2.42 x10^3/uL (1-3.4); LYMPHOCYTES % (AUTO) 36 % (22-44); MD NO; MEAN CORPUSCULAR HEMOGLOBIN 31.9 pg (27.0-34.8); MEAN CORPUSCULAR HGB CONC 33.1 g/dL (32.4-35.8); MEAN CORPUSCULAR VOLUME 96.5 fL (80-100); MEAN PLATELET VOLUME 9.1 fL (7.4-10.4); MONOCYTES # (AUTO) 0.39 x10^3/uL (0.2-0.8); MONOCYTES % (AUTO) 6 % (2-9); NEUTROPHILS # (AUTO) 3.76 x10^3/uL (1.8-6.8); NEUTROPHILS % (AUTO) 56 % (42-75); PLATELET COUNT 260 x10^3/uL (130-400); RED BLOOD COUNT 4.93 x10^6/uL (3.82-5.3); RED CELL DISTRIBUTION WIDTH 12.8 % (9.6-15.2)
[2019-12-28] MEDS ORDERED: ALBUTEROL/IPRATROPIUM 2.5MG/0.5MG, 3 ML NPPB ONE (14:00)
[2019-12-28 14:06] LABS: ALANINE AMINOTRANSFERASE 19 U/L (12-78); ALBUMIN 3.5 g/dL (3.4-5.0); ANION GAP 6 mmol/L (5-15); CALCIUM 8.8 mg/dL (8.5-10.1); CHLORIDE 111 mmol/L (98-107)
[2019-12-28] MEDS ORDERED: ALBUTEROL/IPRATROPIUM 2.5MG/0.5MG, 3 ML ONE (14:06)
[2019-12-28 14:13] LABS: ALKALINE PHOSPHATASE 86 U/L (45-117); BILIRUBIN,TOTAL 0.4 mg/dL (0.2-1.0); TOTAL PROTEIN 6.4 g/dL (6.4-8.2); TROPONIN I < 0.015 ng/mL (0.000-0.045)
--- NOTE | 2019-12-28 14:24 | NUR ---
Patient/Caregiver given discharge instructions and they have confirmed that they understand the instructions. Patient ambulatory with steady gait.
== END 2019-12-28 15:21 | disposition home or self-care (01) ==
LOC: ED 13:51
DX: J44.1 Chronic obstructive pulmonary disease with (acute) exacerbation (principal); R07.89 Other chest pain; M19.90 Unspecified osteoarthritis, unspecified site; E78.5 Hyperlipidemia, unspecified; F17.200 Nicotine dependence, unspecified, uncomplicated; Z90.89 Acquired absence of other organs
CPT/HCPCS: 36415; 80053; 83690; 84484; 85025; 93005; 94640; 99284